=== PATIENT | male | born 1985 | race Hispanic/Latino ===

== ENCOUNTER 2017-09-05 16:52 | Outpatient (CLI) | payer OTHER ==
--- NOTE | 2017-09-05 17:36 | RAD ---
LEFT KNEE FOUR VIEWS 09/05/17 HISTORY: Lipoma. FINDINGS/IMPRESSION: No bony abnormalities are seen. POS: [facility]
== END 2017-09-05 16:53 | disposition home or self-care (01) ==
LOC: RAD-FRANK 16:52
PROVIDERS: ATTEND Nurse Practitioner Family
DX: D17.20 Benign lipomatous neoplasm of skin and subcutaneous tissue of unspecified limb (principal)

== ENCOUNTER 2019-12-28 08:09 | Outpatient (CLI) | payer OTHER ==
--- NOTE | 2019-12-28 08:22 | RAD ---
Exam:Left knee 4 view HISTORY: Lump on knee. COMPARISON: 09/05/2017 FINDINGS: Preserved joint spaces. No joint effusion. No fracture or malalignment. IMPRESSION: No acute abnormality.
== END 2019-12-28 08:10 | disposition home or self-care (01) ==
LOC: RAD-FRANK 08:09
PROVIDERS: ATTEND Nurse Practitioner Family
DX: L72.9 Follicular cyst of the skin and subcutaneous tissue, unspecified (principal)

== ENCOUNTER 2023-10-17 08:22 | Outpatient (CLI) | payer OTHER | END 2023-10-17 08:23 | disposition home or self-care (01) | LOC: CT 08:22 | PROVIDERS: ATTEND Specialist | DX: M79.89 Other specified soft tissue disorders (principal); G93.89 Other specified disorders of brain | CPT/HCPCS: 70470 ==

== ENCOUNTER 2024-06-08 08:52 | Outpatient (CLI) | payer OTHER ==
[2024-06-08] MEDS ORDERED: Regadenoson 0.4 MG/5 ML SYRINGE ONE (10:53)
== END 2024-06-08 08:53 | disposition home or self-care (01) ==
LOC: NM 08:52
PROVIDERS: ATTEND Internal Medicine
DX: I20.0 Unstable angina (principal); I51.89 Other ill-defined heart diseases; I51.5 Myocardial degeneration
CPT/HCPCS: 78452; 93017; A9500; J2785

== ENCOUNTER 2024-06-18 18:47 | Observation (INO) | payer SELFPAY ==
[2024-06-18 19:03] LABS: #Basophils 0.07 10x3/uL (0.0-0.2); %Basophils 0.7 % (0.0-1.0); %Eosinophils 1.1 % (0.0-10.0); %Lymphocytes 25.1 % (21.0-51.0); %Monocytes 8.6 % (0.0-10.0); %Neutrophils 63.9 % (42.0-75.0); Hemoglobin 17.4 g/dL (14.0-18.0); Mean Corpuscular Hemoglobin 33.5 pg (27.0-31.0); Mean Corpuscular Volume 90.6 fL (78.0-98.0); Mean Platelet Volume 8.6 fL (7.4-10.4); Platelet Count 236 10x3/uL (130-400); RBC Distribution Width 11.7 % (11.5-14.5); Red Blood Cell (RBC) Count 5.19 mill/uL (4.70-6.10)
[2024-06-18 19:34] LABS: ALT (SGPT) 71 U/L (8-55); AST (SGOT) 40 U/L (5-34); Albumin 4.5 g/dL (3.5-5.0); Alkaline Phosphatase 83 U/L (40-110); Anion Gap 11 mmol/L (10-20); BUN (Urea Nitrogen) 9 mg/dL (8.9-20.6); Bilirubin, Total 1.7 mg/dL (0.2-1.2); Calc. Creatinine Clearance 0 mL/min (70-130); Calcium 9.5 mg/dL (7.8-10.44); Carbon Dioxide 27 mmol/L (22-29); Chloride 105 mmol/L (98-107); Estimated GFR 111; Glucose 107 mg/dL (70-105); Potassium 3.8 mmol/L (3.5-5.1); Protein, Total 7.5 g/dL (6.0-8.3); Sodium 139 mmol/L (136-145); Troponin I Less than 0.010 ng/mL (< 0.028)
[2024-06-18] MEDS ORDERED: Ondansetron ODT 4 MG TAB SL PRN (21:15)
[2024-06-18] MEDS ORDERED: Ondansetron PF 4 MG/2 ML Vial IVP PRN ×2 (21:15→21:32)
[2024-06-18] MEDS ORDERED: Aspirin Chewable 81 MG TAB ONE (21:17)
[2024-06-18] MEDS ORDERED: Senokot S 8.6-50 MG TAB PO PRN (21:32)
[2024-06-18] MEDS ORDERED: Acetaminophen 650 MG Suppository PR PRN (21:32)
[2024-06-18] MEDS ORDERED: Ondansetron ODT 4 MG TAB PO PRN (21:32)
[2024-06-18] MEDS ORDERED: Nitroglycerin 0.4 MG TAB (25 Tab Bottle) SL PRN (21:32)
[2024-06-18] MEDS ORDERED: Morphine 2 MG/ML VIAL SLOW IVP PRN (21:40)
[2024-06-18] MEDS ORDERED: Electrolyte Replacement Protocol 1 EACH FS SCH (21:45)
[2024-06-18 22:28] VITALS: BMI 35.0
[2024-06-18] MEDS: Sodium Chloride 0.9% 1,000 ML IV SCH (22:55)
[2024-06-18 23:12] LABS: Troponin I 0.021 ng/mL (< 0.028)
[2024-06-19 01:16] LABS: Troponin I Less than 0.010 ng/mL (< 0.028)
[2024-06-19 04:20] LABS: #Basophils 0.07 10x3/uL (0.0-0.2); %Basophils 0.7 % (0.0-1.0); %Eosinophils 1.6 % (0.0-10.0); %Monocytes 10.5 % (0.0-10.0); %Neutrophils 52.8 % (42.0-75.0); Hematocrit 44.7 % (42.0-52.0); Hemoglobin 15.9 g/dL (14.0-18.0); Mean Corpuscular HGB CONC 35.6 g/dL (32.0-36.0); Mean Corpuscular Hemoglobin 31.9 pg (27.0-31.0); Mean Corpuscular Volume 89.6 fL (78.0-98.0); Mean Platelet Volume 9.2 fL (7.4-10.4); Platelet Count 215 10x3/uL (130-400); RBC Distribution Width 11.9 % (11.5-14.5); Red Blood Cell (RBC) Count 4.99 mill/uL (4.70-6.10)
[2024-06-19 04:48] LABS: Anion Gap 11 mmol/L (10-20); BUN (Urea Nitrogen) 9 mg/dL (8.9-20.6); Calc. Creatinine Clearance 163 mL/min (70-130); Calcium 8.6 mg/dL (7.8-10.44); Carbon Dioxide 24 mmol/L (22-29); Cardiac Risk 3.9 (Less than 4.5); Chloride 109 mmol/L (98-107); Cholesterol 124 mg/dl (< 200 Desired); Estimated GFR 113; Glucose 94 mg/dL (70-105); HDL Cholesterol 32 mg/dL (>60 Neg Risk); LDL Cholesterol, Calculated 66 mg/dL; Potassium 3.4 mmol/L (3.5-5.1); Sodium 141 mmol/L (136-145); Triglycerides 129 mg/dL (Less than 150)
[2024-06-19] MEDS ORDERED: Nitroglycerin 50 MG/250 ML BOT 250 ML ONE (07:44)
[2024-06-19] MEDS ORDERED: Verapamil 5 MG/2 ML VIAL ONE (07:44)
[2024-06-19] MEDS ORDERED: Heparin 10,000 UNITS/ 10 ML VIAL ONE (07:44)
[2024-06-19] MEDS ORDERED: Aspirin 325 MG TAB PO SCH (08:00)
[2024-06-19] MEDS ORDERED: fentaNYL 50 mcg/mL 1 mL Vial ONE (08:09)
[2024-06-19] MEDS ORDERED: Midazolam HCl 2 mg/2 ml Vial ONE (08:09)
[2024-06-19] MEDS ORDERED: Sodium Chloride 0.9% 200 ML IV PRN (08:50)
[2024-06-19] MEDS ORDERED: Nitroglycerin 0.4 MG TAB (25 Tab Bottle) SL PRN (08:50)
[2024-06-19] MEDS ORDERED: Acetaminophen/Codeine 30-300mg Tablet PO PRN ×2 (08:50)
[2024-06-19] MEDS ORDERED: Enoxaparin 40 MG (0.4 mL) SYRINGE SC SCH (09:00)
[2024-06-19] MEDS: Potassium Chloride 20 MEQ in Premix 1 BAG IVPB SCH (09:27)
[2024-06-19] MEDS: dilTIAZem ER 60 MG CAP PO SCH (09:39)
[2024-06-19] MEDS: Aspirin Chewable 81 MG TAB PO SCH (09:39)
[2024-06-19] MEDS: Famotidine 20 MG TAB PO SCH (09:41)
[2024-06-19] MEDS: Sodium Chloride 0.9% 1,000 ML IV SCH (09:41)
[2024-06-19] MEDS: Potassium Chloride 20 MEQ TAB PO SCH (09:41)
[2024-06-19] MEDS: FLU (Fluarix Triv) TS24-25(6MOS UP)/PF 45 MCG/0.5 ML Syringe IM ONE (10:08)
[2024-06-19] MEDS ORDERED: Iopamidol 370 76% 100 ML VIAL ONE (10:26)
[2024-06-19] MEDS: Acetaminophen 325 MG TAB PO PRN (11:05)
[2024-06-19 12:11] VITALS: BP 104/63; TEMP 97.6
[2024-06-19] MEDS ORDERED: Atorvastatin Calcium 40 MG TAB PO SCH (21:00)
== END 2024-06-19 12:42 | disposition home or self-care (01) ==
LOC: ERS 18:47 → 2SE 21:04
PROVIDERS: ADMIT Family Medicine; ATTEND Internal Medicine
PROC: 4A023N7 Measurement of Cardiac Sampling and Pressure, Left Heart, Percutaneous Approach (ICD-10-PCS; principal; 2024-06-19)
DX: R07.89 Other chest pain (principal); I20.0 Unstable angina; I10 Essential (primary) hypertension; Z90.49 Acquired absence of other specified parts of digestive tract; Z87.891 Personal history of nicotine dependence; Z79.82 Long term (current) use of aspirin; Z79.899 Other long term (current) drug therapy
CPT/HCPCS: 36415; 71045; 80048; 80053; 80061; 83690; 84443; 84484; 85025; 93005; 93458; 94760; 99152; 99153; C1769; C1894; G0378; J1644; J2250; J3010; J7030; Q9967